=== PATIENT | female | born 1985 | race African-American/Black ===

== ENCOUNTER 2020-03-13 15:10 | Emergency (ER) | payer MEDICAID ==
[~2020-03-13] VITALS: Ht 165.1 cm; Wt 82.0 kg
[2020-03-13] MEDS ORDERED: SODIUM CHLORIDE 0.9% 1,000 ML IV ONE (17:25)
[2020-03-13 18:01] LABS: CHLORIDE 102 mEq/L (98-107)
[2020-03-13 18:04] LABS: BASOPHILS % 0.8 % (0.0-2.0); EOSINOPHILS % 0.1 % (0.0-5.0); HEMATOCRIT. 34.9 % (36.0-48.0); HEMOGLOBIN. 11.5 g/dL (12.0-16.0); LYMPHOCYTES % 15.5 % (20.0-50.0); MEAN CORPUSCULAR HEMOGLOBIN 26.9 pg (28.0-32.0); MEAN CORPUSCULAR VOLUME 81.8 fL (81.0-99.0); MEAN PLATELET VOLUME 8.2 fl (7.4-10.4); MONOCYTES % 11.9 % (2.0-8.0); NEUTROPHILS % 71.7 % (40.0-76.0); PLATELET 280 x1000/uL (130-400); RED BLOOD CELL COUNT 4.27 mill/uL (4.2-5.4); RED CELL DISTRIBUTION WIDTH 15.8 % (11.6-14.6)
[2020-03-13 18:12] LABS: B-HCG QUANTITATIVE < 1 mIU/mL (<3)
[2020-03-13 20:00] VITALS: BP 138/81
== END 2020-03-13 20:23 | disposition home or self-care (01) ==
LOC: ER 15:10
DX: R10.2 Pelvic and perineal pain (principal); Z90.89 Acquired absence of other organs
CPT/HCPCS: 36415; 76830; 76856; 80053; 81025; 84702; 85025; 86850; 86900; 86901; 99284; J7030

== ENCOUNTER 2021-01-22 22:19 | Emergency (ER) | payer BC, MEDICAID ==
[~2021-01-22] VITALS: Ht 165.1 cm; Wt 76.0 kg
[2021-01-22 22:21] VITALS: BP 145/118
== END 2021-01-22 22:40 | disposition left against medical advice (07) ==
LOC: ER 22:19
DX: Z53.21 Procedure and treatment not carried out due to patient leaving prior to being seen by health care provider (principal)

== ENCOUNTER 2021-06-20 14:06 | Emergency (ER) | payer BC, MEDICAID ==
[~2021-06-20] VITALS: Ht 165.1 cm; Wt 100.0 kg
[2021-06-20] MEDS ORDERED: ACETAMINOPHEN 325MG TABLET PO STA (16:09)
[2021-06-20] MEDS ORDERED: KETOROLAC 60MG/2ML VIAL IM STA (16:09)
[2021-06-20 16:17] LABS: CLARITY URINE CLOUDY (CLEAR); COLOR URINE DARK YELLOW (YELLOW); KETONES URINE TRACE (NEGATIVE); LEUKOCYTE ESTERASE URINE 1+ (NEGATIVE); NITRITE URINE POSITIVE (NEGATIVE); OCCULT BLOOD URINE 3+ (NEGATIVE); PH URINE 5.5 (4.5-8.0); PROTEIN URINE 1+ (NEGATIVE); SPECIFIC GRAVITY URINE 1.028 (1.005-1.030)
[2021-06-20 16:27] VITALS: BP 213/164
[2021-06-20 16:41] LABS: BASOPHILS % 0.4 % (0.0-2.0); CHLORIDE 107 mEq/L (98-107); EOSINOPHILS % 0.7 % (0.0-5.0); HEMATOCRIT. 34.5 % (36.0-48.0); HEMOGLOBIN. 11.4 g/dL (12.0-16.0); LYMPHOCYTES % 29.8 % (20.0-50.0); MEAN CORPUSCULAR HEMOGLOBIN 27.3 pg (28.0-32.0); MEAN CORPUSCULAR VOLUME 82.4 fL (81.0-99.0); MEAN PLATELET VOLUME 8.1 fl (7.4-10.4); MONOCYTES % 8.1 % (2.0-8.0); PLATELET 386 x1000/uL (130-400); RED BLOOD CELL COUNT 4.18 mill/uL (4.2-5.4); RED CELL DISTRIBUTION WIDTH 14.8 % (11.6-14.6)
[2021-06-20] MEDS ORDERED: CEPH500C2 MT (18:42)
== END 2021-06-20 18:57 | disposition home or self-care (01) ==
LOC: ER 14:06
DX: N39.0 Urinary tract infection, site not specified (principal)
CPT/HCPCS: 36415; 76700; 80053; 81003; 81025; 85025; 96372; 99284